=== PATIENT | female | born 1990 | race Caucasian/White ===

== ENCOUNTER → 2020-07-13 07:38 | Outpatient (CLI) | payer OTHER, SELFPAY ==
[2020-07-13] MEDS: COVID-19 VACC #1, MRNA(MOD) 100 MCG/0.5 ML VIAL IM (07:48)
== END ==
PROVIDERS: Visit Provider Internal Medicine
DX: Z23 Encounter for immunization (principal)
CPT/HCPCS: 0011A; 91301

== ENCOUNTER → 2020-08-10 07:34 | Outpatient (CLI) | payer OTHER, SELFPAY ==
[2020-08-10] MEDS: COVID-19 VACC #2, MRNA(MOD) 100 MCG/0.5 ML VIAL IM (07:47)
== END ==
PROVIDERS: Visit Provider Internal Medicine
DX: Z23 Encounter for immunization (principal)
CPT/HCPCS: 0012A; 91301